=== PATIENT | male | born 1980 | race Caucasian/White ===

== ENCOUNTER 2016-05-15 16:43 | Emergency (ER) | payer BC ==
--- NOTE | 2016-05-15 17:27 | EDM.PDOC ---
ED HISTORY OF PRESENT ILLNESS - General Chief Complaint: Respiratory Problem Stated Complaint: SYNCOPE Time Seen by Provider: 05/15/16 16:59 Source of Information: Reports: Patient, RN notes reviewed - History of Present Illness INITIAL COMMENTS - FREE TEXT/NARRATIVE: 36-year-old male with onset of generalized severe myalgias this morning upon awakening. As time went on this morning continue to feel very ill and eventually developed sore throat, frequent nonproductive cough nasal congestion headache along with fever and chills. Of note his 12-year-old son has been suffering similar symptoms for about the past 4 days. His cough has been nonproductive. He's had no wheezing her major difficulty breathing other than the frequent annoying cough. He continues to have severe generalized myalgias no energy. He denies history for asthma. He states he did have respiratory infections as an infant and it sounds like one or 2 episodes of pneumonia this first years of life. - Related Data Allergies/ADRs: Allergies Allergy/AdvReac Type Severity Reaction Status Date / Time No Known Allergies Allergy Verified 05/15/16 16:53 Home Meds: Home Meds buPROPion [buPROPion XL] 300 mg PO DAILY 09/26/15 [History] cloNIDine HCl [Clonidine HCl] 0.1 mg PO DAILY 09/26/15 [History] traZODone HCl [Trazodone HCl] 200 mg PO BEDTIME 09/26/15 [History] Oseltamivir [Tamiflu] 75 mg PO BID #10 cap 05/15/16 [Rx] metFORMIN [Glucophage XR] 500 mg PO DAILY 05/15/16 [History] Past Medical History - Past Health History Medical/Surgical History: Denies Medical/Surgical History Psychiatric History: Reports: Depression Endocrine/Metabolic History: Reports: Diabetes, type II - Past Surgical History HEENT Surgical History: Reports: Adenoidectomy, Tonsillectomy Musculoskeletal Surgical History: Reports: ORIF, Other (see below) Other Musculoskeletal Surgeries/Procedures:: Foot surgery Social & Family History - Tobacco Use Smoking Status *Q: Never Smoker - Recreational Drug Use Recreational Drug Use: No ED ROS GENERAL - Review of Systems Review Of Systems: See Below Constitutional: Reports: fever, chills, fatigue, other (generalized myalgias) HEENT: Denies: Throat pain Respiratory: Reports: no symptoms, cough (frequent harsh nonproductive). Denies : wheezing, sputum Cardiovascular: Reports: Chest pain (with coughing) Endocrine: Reports: fatigue GI/Abdominal: Denies: Abdominal pain, Diarrhea, Nausea, Vomiting Musculoskeletal: Reports: other (severe generalized myalgias) Skin: Reports: no symptoms Neurological: Reports: dizziness, headache ED EXAM, GENERAL - Physical Exam Exam: See Below General Appearance: alert, moderate distress Eye Exam: bilateral eye: PERRL Nose: normal inspection Throat/Mouth: Normal inspection, Normal oropharynx Neck: supple, full range of motion. No: lymphadenopathy (L), lymphadenopathy (R ) Respiratory/Chest: no respiratory distress, lungs clear Cardiovascular: tachycardia Extremities: normal inspection, normal range of motion Neurological: alert, oriented, no motor/sensory deficits Skin Exam: Warm, Dry, Normal color Course - Vital Signs Last Recorded V/S: Last Vital Signs Temp 99.5 F 05/15/16 16:51 Pulse 100 05/15/16 17:40 Resp 20 05/15/16 16:51 BP 168/80 H 05/15/16 17:40 Pulse Ox 95 05/15/16 17:40 - Orders/Labs/Meds Orders: Active Orders 24 hr Category Date Time Status INFLUENZA A+B AG SCREEN [RM] Stat Lab 05/15/16 16:50 Stop Req Departure - Departure Time of Disposition: 17:27 Disposition: Home, Self-Care 01 Condition: fair Clinical Impression: Influenza Prescriptions: Oseltamivir [Tamiflu] 75 mg PO BID #10 cap Instructions: Influenza, Adult, [id number] Referrals: Maritza Ramirez, ASSEMBLING INSPECTOR [Primary Care Provider] - Forms: ED Department Discharge, Return to Work/School Form Additional Instructions: vaporizer or humidifier as needed, Tamiflu twice daily for 5 days, this is been sent to [facility] [place]. rest, no work until early next week, he needs to be without fever for at least 24 hours before going back to work, alternate Tylenol and ibuprofen as needed, cough decongestant medicine as needed, followup clinic if not much better within 3-4 days as expected, return to ED if symptoms worsening in any way - My Orders Last 24 Hours: My Active Orders 05/15/16 16:50 INFLUENZA A+B AG SCREEN [RM] Stat - Assessment/Plan Last 24 Hours: My Active Orders 05/15/16 16:50 INFLUENZA A+B AG SCREEN [RM] Stat
[2016-05-15 17:48] VITALS: BP 168/80
== END 2016-05-15 17:40 | disposition home or self-care (01) ==
LOC: JD.ED 16:43
DX: J10.89 Influenza due to other identified influenza virus with other manifestations (principal); E11.9 Type 2 diabetes mellitus without complications; Z79.899 Other long term (current) drug therapy; Z98.890 Other specified postprocedural states
CPT/HCPCS: 87804; 99283

== ENCOUNTER 2016-06-30 13:35 | Emergency (ER) | payer BC ==
[2016-06-30 13:49] VITALS: BP 153/98
[2016-06-30] MEDS ORDERED: Acetaminophen/oxyCODONE 325-5 MG Tab PO ONE (13:56)
--- NOTE | 2016-06-30 14:16 | EDM.PDOC ---
ED HPI Allergic Reaction - General Chief Complaint: Allergic Reaction Stated Complaint: ALLERGIC REACTION Time Seen by Provider: 06/30/16 13:45 Source of Information: Reports: Patient, RN notes reviewed - History of Present Illness INITIAL COMMENTS - FREE TEXT/NARRATIVE: 36-year-old male comes in with earache and swelling around his external auditory ear canal. His earache started about 2 days ago. He was evaluated at [place] [facility] yesterday, diagnosed with otitis externa, started on Cortisporin type eardrops and also Serzone cephalexin 500 mg 3 or 4 times daily. Today the earache is worse and also he feels like he is developing some swelling around the outer ear canal area. He's had some chills and possible fever at home. He is afebrile on arrival here to the ED. There has been a small amount of drainage, especially at night for the last 2 days. No significant nasal or sinus congestion. No sore throat or difficulty breathing. No headache. He was prescribed some hydrocodone for the ear discomfort but states "that is not working" - Related Data Allergies/ADRs: Allergies Allergy/AdvReac Type Severity Reaction Status Date / Time No Known Allergies Allergy Verified 06/30/16 13:49 Home Meds: Home Meds buPROPion [buPROPion XL] 300 mg PO DAILY 09/26/15 [History] cloNIDine HCl [Clonidine HCl] 0.1 mg PO DAILY 09/26/15 [History] traZODone HCl [Trazodone HCl] 200 mg PO BEDTIME 09/26/15 [History] Oseltamivir [Tamiflu] 75 mg PO BID #10 cap 05/15/16 [Rx] metFORMIN [Glucophage XR] 500 mg PO DAILY 05/15/16 [History] Acetaminophen/oxyCODONE [Percocet 325-5 MG] 1 tab PO Q4H PRN #20 tablet [Rx] Cephalexin 500 mg PO TID 06/30/16 [History] Ibuprofen [Motrin] 800 mg PO Q8H #20 tablet 06/30/16 [Rx] Ibuprofen [Motrin] 800 mg PO Q8H #20 tablet 06/30/16 [Rx] Levofloxacin [Levaquin] 750 mg PO DAILY #14 tablet 06/30/16 [Rx] Past Medical History - Past Health History Medical/Surgical History: Denies Medical/Surgical History Psychiatric History: Reports: Depression Endocrine/Metabolic History: Reports: Diabetes, type II - Past Surgical History HEENT Surgical History: Reports: Adenoidectomy, Tonsillectomy Musculoskeletal Surgical History: Reports: ORIF, Other (see below) Other Musculoskeletal Surgeries/Procedures:: Foot surgery Social & Family History - Tobacco Use Smoking Status *Q: Never Smoker - Caffeine Use Caffeine Use: Reports: Coffee - Recreational Drug Use Recreational Drug Use: No ED ROS ALLERGIC REACTION - Review of Systems Review Of Systems: See Below Constitutional: Reports: fever (Possible), chills HEENT: Reports: Ear discharge, Ear pain (Severe). Denies: Sinus problem, Throat pain Respiratory: Denies: Shortness of Breath, Pleuritic Chest Pain Cardiovascular: Denies: Chest pain GI/Abdominal: Denies: Abdominal pain, Nausea, Vomiting Musculoskeletal: Denies: neck pain, arm pain, back pain Skin: Reports: erythema (Slight localized erythema around the external ear canal ). Denies: rash Neurological: Denies: Dizziness, Headache, Numbness, Tingling ED EXAM GENERAL NO PERIP PULSE - Physical Exam Exam: See Below General Appearance: alert, moderate distress Eye Exam: bilateral eye: PERRL Ears: other (There is swelling of the area of the external auditory meatus. There is tenderness anteriorly and inferiorly with mild tenderness posteriorly as well. He is nontender at this time behind the ear. There's no swelling or erythema visible behind the ear at this time. There is some drainage in the ear canal. At this time due to swelling and drainage I not able to visualize the TM. ) Nose: normal inspection Throat/Mouth: Normal inspection, Normal oropharynx Head: other (There is no other area of facial swelling or tenderness) Neck: supple, full range of motion. No: lymphadenopathy (L), lymphadenopathy (R ) Respiratory/Chest: no respiratory distress, lungs clear, normal breath sounds Cardiovascular: regular rate, rhythm Extremities: normal inspection, normal range of motion Neurological: alert, no motor/sensory deficits Skin Exam: Warm, Dry, Normal color Course - Vital Signs Last Recorded V/S: Last Vital Signs Temp 98.0 F 06/30/16 13:45 Pulse 75 06/30/16 13:45 Resp 18 06/30/16 13:45 BP 153/98 H 06/30/16 13:45 Pulse Ox 100 06/30/16 13:45 - Orders/Labs/Meds Meds: Medications Discontinued Medications Generic Name Dose Route Start Last Admin Trade Name Maru PRN Reason Stop Dose Admin Oxycodone/Acetaminophen 1 tab 06/30/16 13:56 06/30/16 14:04 Percocet 325-5 Mg PO 06/30/16 13:57 1 tab ONETIME ONE Administration - Re-Assessments/Exams Free Text/Narrative Re-Assessment/Exam: 06/30/16 16:56. We'll add Levaquin 750 mg daily to his current antibiotic regimen. Also with consideration of personal body weight of 177 kg the hydrocodone prescribed is not working. We'll prescribe Percocet 5 325 every 4-6 hours when necessary severe pain. Discharge instructions as documented. I have strongly suggested followup at the clinic in 2 days. Departure - Departure Time of Disposition: 14:11 Disposition: Home, Self-Care 01 Condition: fair Clinical Impression: Otitis externa Qualifiers: Otitis externa type: other infective Laterality: left Chronicity: acute Qualified Code(s): H60.392 - Other infective otitis externa, left ear Cellulitis Qualifiers: Site of cellulitis: face Qualified Code(s): L03.211 - Cellulitis of face Prescriptions: Acetaminophen/oxyCODONE [Percocet 325-5 MG] 1 tab PO Q4H PRN #20 tablet PRN Reason: Pain Ibuprofen [Motrin] 800 mg PO Q8H #20 tablet Ibuprofen [Motrin] 800 mg PO Q8H #20 tablet Levofloxacin [Levaquin] 750 mg PO DAILY #14 tablet Instructions: Otitis Externa, [id number], Cellulitis, Adult, [id number] Referrals: Maritza Ramirez AMBULANCE MECHANIC [Primary Care Provider] - Forms: ED Department Discharge, Return to Work/School Form Additional Instructions: Levaquin 750 mg daily for 2 weeks, continue eardrops as prescribed and also continue cephalexin as previously prescribed, no work for the next 2-3 days until discomfort resolving, Motrin 800 mg 3 times daily with food, you, may take Percocet in addition as needed for severe pain. When you were feeling better, ready to go back to work he may alternate Motrin and Tylenol as discussed mild to moderate pain relief. Followup at clinic in about 2 days for recheck, call for appointment, return to ED as needed
== END 2016-06-30 14:43 | disposition home or self-care (01) ==
LOC: JD.ED 13:35
DX: H60.392 Other infective otitis externa, left ear (principal); L03.211 Cellulitis of face; F32.9 Major depressive disorder, single episode, unspecified; E11.9 Type 2 diabetes mellitus without complications; Z98.890 Other specified postprocedural states; Z79.899 Other long term (current) drug therapy
CPT/HCPCS: 99284; A9270; 99283

== ENCOUNTER 2017-01-11 11:51 | Emergency (ER) | payer BC ==
[2017-01-11 12:03] VITALS: BP 152/79
--- NOTE | 2017-01-11 13:08 | EDM.PDOC ---
ED HPI GENERAL MEDICAL PROBLEM - General Chief Complaint: ENT Problem Stated Complaint: RIGHT EYE PROBLEMS Time Seen by Provider: 01/11/17 12:06 Source of Information: Reports: Patient, RN Notes Reviewed History Limitations: Reports: No Limitations - History of Present Illness INITIAL COMMENTS - FREE TEXT/NARRATIVE: The patient states that he developed a foreign body sensation to his right eye around 11:00 yesterday, 01/10/2017. He removed his contact lens, but since then , he has had increased right eye pain with light, and he has had increased tearing. He states that he no longer has a foreign body sensation. He does not recall any trauma to his eye. He states that he had a similar experience in September 2016, and saw an eye doctor after about a week. He states that he was told that he had a corneal ulcer, but that no treatment was given, because it was too late. He states that he suffered no consequences as a result. The patient's PCP is Trish Ramirez. Right Eye Pain Score (Numeric/FACES): 7 - Related Data Allergies Allergy/AdvReac Type Severity Reaction Status Date / Time No Known Allergies Allergy Verified 01/11/17 11:59 Home Meds: Home Meds buPROPion [buPROPion XL] 300 mg PO DAILY 09/26/15 [History] cloNIDine HCl [Clonidine HCl] 0.1 mg PO DAILY 09/26/15 [History] traZODone HCl [Trazodone HCl] 200 mg PO BEDTIME 09/26/15 [History] metFORMIN [Glucophage XR] 500 mg PO DAILY 05/15/16 [History] Ketorolac [Acular 0.5% Ophth Soln] 1 drop EYERT Q6H PRN #1 bottle 01/11/17 [Rx] Multivitamin [Multivitamins] 1 cap PO DAILY 01/11/17 [History] Tobramycin [Tobrex] 1 - 2 drop EYERT Q6H #1 bottle 01/11/17 [Rx] Past Medical History Cardiovascular History: Reports: High Cholesterol (untreated), Hypertension Musculoskeletal History: Reports: Fracture (right 5th metacarpal) Psychiatric History: Reports: Depression, Other (See Below) (Insomnia) Endocrine/Metabolic History: Reports: Obesity/BMI 30+, Other (See Below) ( Prediabetes) - Past Surgical History HEENT Surgical History: Reports: Adenoidectomy, Tonsillectomy Musculoskeletal Surgical History: Reports: ORIF (right 5th metacarpal) Dermatological Surgical History: Reports: Other (See Below) (Right foot debridement) Social & Family History - Tobacco Use Smoking Status *Q: Former Smoker Years of Tobacco use: 10 Packs/Tins Daily: 1 Month Tobacco Last Used: Quit 2006 - Caffeine Use Caffeine Use: Reports: None - Alcohol Use Alcohol Use History: Yes Alcohol Use Frequency: Rarely - Recreational Drug Use Recreational Drug Use: No - Living Situation & Occupation Living situation: Reports: , with Family (Son) Occupation: Employed ([employer]) ED ROS GENERAL - Review of Systems Review Of Systems: See Below Constitutional: Reports: No Symptoms HEENT: Reports: No Symptoms Respiratory: Reports: No Symptoms Cardiovascular: Reports: No Symptoms Endocrine: Reports: No Symptoms GI/Abdominal: Reports: No Symptoms : Reports: No Symptoms Musculoskeletal: Reports: No Symptoms Skin: Reports: No Symptoms Neurological: Reports: No Symptoms Psychiatric: Reports: No Symptoms Hematologic/Lymphatic: Reports: No Symptoms Immunologic: Reports: No Symptoms ED EXAM GENERAL W FULL EYE - Physical Exam Exam: See Below Exam Limited By: No Limitations General Appearance: Alert, WD/WN, Mild Distress (appears uncomfortable) Eye Exam: Right Eye: Conjunctival Injection, Bilateral Eye: EOMI, PERRL Eyelids: Bilateral: Normal Appearance Conjunctiva & Sclera: Right: Other (scleral injection), Left: Normal Appearance Cornea Exam: Right: Corneal Ulcer (small, at 10:00 position), Examined with Flourescein Extraocular Movements: Bilateral: Intact Pupils: Normal Accommodation Pupillary Size: Bilateral: 4 mm Pupillary Reaction: Bilateral: Brisk Anterior Chamber: Right: Normal Appearance Course - Vital Signs Last Recorded V/S: Last Vital Signs Temp 36.7 C 01/11/17 11:59 Pulse 62 01/11/17 11:59 Resp 18 01/11/17 11:59 BP 152/79 H 01/11/17 11:59 Pulse Ox 97 01/11/17 11:59 - Re-Assessments/Exams Free Text/Narrative Re-Assessment/Exam: 01/11/17 13:02 The patient is found to have a small corneal abrasion at the 10:00 position of the right eye, seen with fluorescein dye and a Wood's lamp, then confirmed with a slit lamp. We will treat with ophthalmic Tobrex and Acular. The patient is to follow-up with his eye doctor tomorrow, 01/12/2017. He is not to wear his contact lenses until cleared by his eye doctor. I will write a note for work to allow him to return on Thursday. Departure - Departure Time of Disposition: 13:04 Disposition: Home, Self-Care 01 Condition: Fair Clinical Impression: Corneal ulcer of right eye - Discharge Information Prescriptions: Ketorolac [Acular 0.5% Ophth Soln] 1 drop EYERT Q6H PRN #1 bottle PRN Reason: Pain Tobramycin [Tobrex] 1 - 2 drop EYERT Q6H #1 bottle Instructions: Corneal Ulcer Referrals: Maritza Ramirez REVERBERATORY FURNACE SUPERVISOR [Primary Care Provider] - Forms: ED Department Discharge, ED Return to Work/School Form Additional Instructions: You were seen in the emergency room for right eye pain and sensitivity to light. On examination, you had a corneal ulcer at the 10:00 position. Instill 1-2 drops of the antibiotic Tobrex in your right eye every 6 hours, as prescribed. Complete a five-day course, unless instructed otherwise by your eye doctor. Instill 1 drop of the pain medicine Acular in your right eye every 6 hours, as prescribed. It is important that you NOT WEAR your contact lenses unless cleared by your eye doctor. Follow-up with your eye doctor tomorrow, 01/12/2017. If any other problems, please do not hesitate to return to the ER.
== END 2017-01-11 13:20 | disposition home or self-care (01) ==
LOC: JD.ED 11:51
DX: H16.001 Unspecified corneal ulcer, right eye (principal); Z79.84 Long term (current) use of oral hypoglycemic drugs; Z79.899 Other long term (current) drug therapy; Z87.891 Personal history of nicotine dependence
CPT/HCPCS: 99283

== ENCOUNTER 2017-02-18 06:18 | Emergency (ER) | payer BC ==
[2017-02-18 06:28] VITALS: BP 136/73
--- NOTE | 2017-02-18 06:59 | EDM.PDOC ---
ED HPI GENERAL MEDICAL PROBLEM - General Chief Complaint: ENT Problem Stated Complaint: RT EYE PAIN Time Seen by Provider: 02/18/17 06:33 Source of Information: Reports: Patient, RN Notes Reviewed - History of Present Illness INITIAL COMMENTS - FREE TEXT/NARRATIVE: 36-year-old male comes in with severe right eye pain. He had onset of mild discomfort last evening when driving home from work. The pain became much worse late last evening and into the early hours of the morning. He has not been able to sleep. He has had some mild tearing of the eye but no major discharge. He does wear contacts. He did experience similar symptoms about 1 month ago and was found to have a small ulceration of the right cornea at that time. He did take his contacts out last evening when he did get home. It was very windy yesterday but he was not aware of anything blowing into either eye. Bilateral Eye Pain Score (Numeric/FACES): 9 - Related Data Allergies Allergy/AdvReac Type Severity Reaction Status Date / Time No Known Allergies Allergy Verified 02/18/17 06:28 Home Meds: Home Meds buPROPion [buPROPion XL] 300 mg PO DAILY 09/26/15 [History] cloNIDine HCl [Clonidine HCl] 0.1 mg PO DAILY 09/26/15 [History] traZODone HCl [Trazodone HCl] 200 mg PO BEDTIME 09/26/15 [History] metFORMIN [Glucophage XR] 500 mg PO DAILY 05/15/16 [History] Multivitamin [Multivitamins] 1 cap PO DAILY 01/11/17 [History] Hydrocodone/Acetaminophen [[place] 5-325] 1 tab PO Q4H PRN #10 tablet 02/18/17 [Rx ] Past Medical History - Past Health History Medical/Surgical History: Denies Medical/Surgical History Cardiovascular History: Reports: High Cholesterol, Hypertension Musculoskeletal History: Reports: Fracture Psychiatric History: Reports: Depression, Other (See Below) Endocrine/Metabolic History: Reports: Obesity/BMI 30+, Other (See Below) Other Endocrine/Metabolic History: "pre diabetes" - Past Surgical History HEENT Surgical History: Reports: Adenoidectomy, Tonsillectomy Musculoskeletal Surgical History: Reports: ORIF Social & Family History - Family History Endocrine/Metabolic: Reports: Diabetes, type II Other Endocrine/Metabolic Family History: "dad is a diabetic, mom thinks she has everything" - Tobacco Use Smoking Status *Q: Never Smoker Years of Tobacco use: 10 Packs/Tins Daily: 1 Used Tobacco, but Quit: Yes Month Tobacco Last Used: Quit 2006 Second Hand Smoke Exposure: No - Caffeine Use Caffeine Use: Reports: None - Recreational Drug Use Recreational Drug Use: No - Living Situation & Occupation Living situation: Reports: , with Family (Son) Occupation: Employed ([employer]) ED ROS ENT - Review of Systems Review Of Systems: See Below Constitutional: Reports: No Symptoms HEENT: Reports: Eye Pain (Right eye) Respiratory: Reports: No Symptoms Cardiovascular: Reports: No Symptoms GI/Abdominal: Denies: Nausea, Vomiting Musculoskeletal: Reports: No Symptoms Skin: Reports: No Symptoms. Denies: Rash Neurological: Denies: Headache ED EXAM, ENT - Physical Exam Exam: See Below General Appearance: Moderate Distress Eye Exam: Right Eye: Corneal Abrasion (Mild), Bilateral Eye: PERRL Head: Atraumatic. No: Facial Swelling Neck: Supple Respiratory/Chest: No Respiratory Distress Extremities: Normal Inspection Neurological: Alert, Oriented Skin: Warm, Dry, No Rash Course - Vital Signs Last Recorded V/S: Last Vital Signs Temp 97.3 F 02/18/17 06:25 Pulse 74 02/18/17 06:25 Resp 16 02/18/17 06:25 BP 136/73 02/18/17 06:25 Pulse Ox 97 02/18/17 06:25 - Re-Assessments/Exams Free Text/Narrative Re-Assessment/Exam: 02/18/17 08:13 Slit-lamp exam of the eyes shows a very small 1 mm area of forcing uptake right upper lateral cornea, no other evidence for corneal injury, no abrasion visible. No foreign material visualized. Departure - Departure Time of Disposition: 06:55 Disposition: Home, Self-Care 01 Condition: Fair Clinical Impression: Corneal ulcer Qualifiers: Laterality: right Qualified Code(s): H16.001 - Unspecified corneal ulcer, right eye - Discharge Information Prescriptions: Hydrocodone/Acetaminophen [[place] 5-325] 1 tab PO Q4H PRN #10 tablet PRN Reason: Pain Instructions: Corneal Ulcer Referrals: Maritza Ramirez PROFILE GRINDER [Primary Care Provider] - Forms: ED Department Discharge Additional Instructions: Use the Tobrex eyedrops previously prescribed 1 month ago, one drop 4 times daily, see your eye doctor in follow up either this afternoon or tomorrow morning, Tylenol for mild to moderate discomfort or hydrocodone if needed for more severe pain, do not drive and taking hydrocodone, do not take Tylenol and hydrocodone at the same time. Do not wear contacts for the next 1-2 weeks.
== END 2017-02-18 07:23 | disposition home or self-care (01) ==
LOC: JD.ED 06:18
DX: H16.001 Unspecified corneal ulcer, right eye (principal); I10 Essential (primary) hypertension; Z79.899 Other long term (current) drug therapy; Z79.84 Long term (current) use of oral hypoglycemic drugs
CPT/HCPCS: 65222; 99283; 99283-25